=== PATIENT | female | born 1995 | race Caucasian/White ===

== ENCOUNTER 2021-02-20 17:33 | Emergency (ER) | payer OTHER ==
[2021-02-20 18:50] LABS: HEMOGLOBIN 13.7 gm/dl (12.3-15.3); RED BLOOD COUNT 4.61 M/UL (4.00-5.10); WHITE BLOOD COUNT 10.3 K/UL (4.5-11.0)
[2021-02-20 19:12] LABS: BUN/CREATININE RATIO 18 (0-10)
[2021-02-20] MEDS ORDERED: CEFUROXIME500 MG PO (21:44)
[2021-02-20] MEDS ORDERED: ZOFRAN ODT 4 MG4 MG PO (21:44)
[2021-02-20] MEDS ORDERED: FLOMAX 0.4 MG0.4 MG PO (21:44)
[2021-02-20] MEDS ORDERED: LODINE CAP 300300 MG PO (21:44)
== END 2021-02-20 22:05 | disposition home or self-care (01) ==
LOC: ER1 17:33
PROVIDERS: Physician Assistant
DX: N13.2 Hydronephrosis with renal and ureteral calculous obstruction (principal); N39.0 Urinary tract infection, site not specified
CPT/HCPCS: 80053; 81001; 83690; 84703; 85025; 87086; 96374; 96375; 99284; J0696; J1885; J2405